=== PATIENT | male | born 1980 | race African-American/Black ===

== ENCOUNTER 2017-02-06 23:36 | Emergency (ER) | payer OTHER ==
[~2017-02-06] VITALS: Ht 172.7 cm; Wt 109.5 kg
[2017-02-06 23:41] VITALS: Ht 172.7 cm; Wt 109.5 kg
[2017-02-07] MEDS ORDERED: IBUPROFEN 600 MG TAB PO ONE (03:00)
[2017-02-07 03:18] LABS: ADD UMIC NO; UR ASCORBIC ACID NEGATIVE (NEGATIVE); UR BILIRUBIN (Dip) NEGATIVE (NEGATIVE); UR BLOOD (Dip) NEGATIVE (NEGATIVE); UR CLARITY CLEAR (CLEAR); UR COLOR YELLOW (YELLOW); UR GLUCOSE (Dip) NEGATIVE (NEGATIVE); UR KETONES (Dip) NEGATIVE (NEGATIVE); UR LEUKOCYTE ESTERASE (Dip) NEGATIVE Leu/ul (NEGATIVE); UR NITRITE (Dip) NEGATIVE (NEGATIVE); UR TOTAL PROTEIN (Dip) NEGATIVE (NEGATIVE); UR UROBILINOGEN (Dip) 1+ mg/dL (NEGATIVE)
--- NOTE | 2017-02-07 03:20 | RADRPT ---
PROCEDURE: Lumbar spine. CLINICAL INDICATION: Low back pain. TECHNIQUE: Three views including AP, lateral and cone-down lateral view of the lumbar spine were obtained. COMPARISON: None. FINDINGS: There is no acute fracture or subluxation. Lumbar vertebral body heights and alignment are within n ormal limits. Intervertebral disk spaces are within normal limits. The posterior elements are unre markable. IMPRESSION: No evidence of fracture or subluxation. .Doroteo Magaña MD, MD Date Time Electronically viewed and signed by .Doroteo Magaña MD, on 02/07/2017 03:20 .T/
--- NOTE | 2017-02-07 03:24 | ERD ---
ER Documentation Chief Complaint Date/Time DATE: 02/07/17 TIME: 03:21 Chief Complaint sp ground level fall backwards, back pain HPI 36-year-old male presents here in emergency department for complaints of right lower back pain after falling backwards into a wood. Patient describes the pain as sharp pain, 6/10 scale, is accompanied with muscle spasms. Patient denies any hematuria or dysuria. Patient denies any incontinence. He did not take any medications to help with symptoms. ROS All systems reviewed and are negative except as per history of present illness. Medications Home Meds Reported Medications [none] Unknown Strength No Conflict Check 02/07/17 Allergies Allergies: Coded Allergies: No Known Allergy (Unverified , 02/06/17) PMhx/Soc Medical and Surgical Hx: pt denies Medical Hx, pt denies Surgical Hx History of Surgery: No Anesthesia Reaction: No Hx Neurological Disorder: No Hx Respiratory Disorders: No Hx Cardiac Disorders: No Hx Psychiatric Problems: No Hx Miscellaneous Medical Probl: No Hx Alcohol Use: No Hx Substance Use: No Hx Tobacco Use: No Smoking Status: Never smoker FmHx Family History: No coronary disease, No diabetes, No other Physical Exam Vitals Vital Signs Date Time Temp Pulse Resp B/P Pulse Ox O2 Delivery O2 Flow Rate FiO2 02/06/17 23:41 97.8 73 20 135/82 98 Physical Exam GENERAL: The patient is well developed and appropriate for usual state of health, in no apparent distress. CHEST: Clear to auscultation bilaterally. There are no rales, wheezes or rhonchi. HEART: Regular rate and rhythm. No murmurs, clicks, rubs or gallops. No S3 or S4. ABDOMEN: Soft, nontender and nondistended. Good bowel sounds. No rebound or guarding. No gross peritonitis. No gross organomegaly or masses. No Grullon sign or McBurney point tenderness. BACK: No midline or flank tenderness. EXTREMITIES: Equal pulses bilaterally. There is no peripheral clubbing, cyanosis or edema. No focal swelling or erythema. Full range of motion. Grossly neurovascularly intact. NEURO: Alert and oriented. Cranial nerves 2-12 intact. Motor strength in all 4 extremities with 5/5 strength. Sensation grossly intact. Normal speech and gait. SKIN: There is no apparent rash or petechia. The skin is warm and dry. HEMATOLOGIC AND LYMPHATIC: There is no evidence of excessive bruising or lymphedema. No gross cervical, axillary, or inguinal lymphadenopathy. Results 24 hrs Laboratory Tests Test 02/07/17 02:50 Urine Color YELLOW Urine Clarity CLEAR Urine pH 5.0 Urine Specific [place] 1.030 Urine Ketones NEGATIVEmg/dL Urine Nitrite NEGATIVEmg/dL Urine Bilirubin NEGATIVEmg/dL Urine Urobilinogen 1+mg/dL Urine Leukocyte Esterase NEGATIVELeu/ul Urine Hemoglobin NEGATIVEmg/dL Urine Glucose NEGATIVEmg/dL Urine Total Protein NEGATIVEmg/dl Current Medications Medications (Trade) Dose Ordered Sig/Margie Route PRN Reason Start Time Stop Time Status Last Admin Dose Admin Ibuprofen (Motrin) 600 mg ONCE ONCE PO 02/07/17 03:00 02/07/17 03:01 DC 02/07/17 03:00 Patient was given medication for pain here in emergency department, after treatment, patient verbalized feeling much better. Patient's pain is improved. PROCEDURE: Lumbar spine. CLINICAL INDICATION: Low back pain. TECHNIQUE: Three views including AP, lateral and cone-down lateral view of the lumbar spine were obtained. COMPARISON: None. FINDINGS: There is no acute fracture or subluxation. Lumbar vertebral body heights and alignment are within normal limits. Intervertebral disk spaces are within normal limits. The posterior elements are unremarkable. IMPRESSION: No evidence of fracture or subluxation. .Doroteo Magaña MD, Date Time Electronically viewed and signed by .Doroteo Magaña MD, on 02/07/2017 03:20 .T/ CC: NURIA LONG BRANDS EDITOR Procedures/MDM Medical Decision Making: Patient's pain is most likely consistent with a back strain/ contusion. There is no suspicion for neurovascular compromise. Patient has intact sensation and circulation of the affected extremity and distal extremities. No incontinence, no suspicion for cauda equina syndrome, no saddle anesthesia, no symptoms of any acute bacterial infection, no symptoms of any perirectal abscesses, pilonidal cyst.There is low suspicion for septic arthritis. Patient does not have any fever. No symptoms of any aortic dissection or aortic aneurysm. Radiology exam not indicated at this time. Disposition: Home. Patient is given prescription for ibuprofen for mild to moderate pain, Speed for severe pain, Flexeril for muscle spasm. Patient was advised to avoid heavy lifting , apply warm compresses on affected area. Patient was advised that if symptoms are worse, numbness, tingling, high fever, unable to move joint, worsening symptoms, to return to emergency department immediately. Otherwise, patient is advised to follow up with the primary care doctor in 5-7 days for reevaluation of symptoms. Departure Diagnosis: Primary Impression: Back pain Back pain location: low back pain Chronicity: acute Back pain laterality: right Sciatica presence: without sciatica Qualified Code: M54.5 - Acute right-sided low back pain without sciatica Condition: Stable Patient Instructions: Back Pain (Acute Or Chronic) NURIA LONG NP Feb 07, 2017 03:24
[2017-02-07] MEDS ORDERED: HYDR-906 PO (04:07)
[2017-02-07] MEDS ORDERED: IBUP-1542 PO (04:07)
[2017-02-07] MEDS ORDERED: CYCL-319 PO (04:07)
[2017-02-07 04:25] VITALS: BP 137/74; PULSE 74; RESP 18
== END 2017-02-07 04:25 | disposition home or self-care (01) ==
LOC: FTE 23:36
DX: M54.5 Low back pain (principal)
CPT/HCPCS: 72100; 81003

== ENCOUNTER 2018-10-04 12:17 | Emergency (ER) | payer OTHER ==
[~2018-10-04] VITALS: Ht 185.4 cm; Wt 112.2 kg
[~2018-10-04 12:17] MED LIST: CYCL10TA7 PO; HYDR-4011 PO; IBUP-1542 PO
[2018-10-04 12:27] VITALS: BP 132/82; PULSE 65; RESP 20; Ht 185.4 cm; Wt 112.2 kg
[2018-10-04] MEDS ORDERED: IBUP-1542 PO (13:17)
--- NOTE | 2018-10-04 15:13 | ERD ---
ER Documentation Chief Complaint Chief Complaint Complains of chest pain since today HPI Patient is a 38-year-old male with no medical problems who presents with chest pain. The patient said that he has had chest pain off and on for 1 week. It comes and goes. Is a sharp pain and lasts seconds at a time and then goes away. He tried [facility]. He does have a primary doctor. Upon review of old medical records this is the patient's second visit to the ER for various complaints. ROS All systems reviewed and are negative except as per history of present illness. Medications Home Meds Active Scripts Ibuprofen* (Motrin*) 600 Mg Tab, 600 MG PO Q6H PRN for PAIN AND OR ELEVATED TEMP, #30 TAB Prov:SAMPSON LEROY MD 10/04/18 Cyclobenzaprine Hcl* (Cyclobenzaprine Hcl*) 10 Mg Tablet, 10 MG PO TID, #15 TAB Prov:NURIA LONG NP 02/07/17 Hydrocodone/Acetaminophen ([place] 5-325 Tablet) 1 Each Tablet, 1 TAB PO Q6H PRN for SEVERE PAIN LEVEL 7-10, #20 TAB Prov:NURIA LONG NP 02/07/17 Ibuprofen* (Motrin*) 600 Mg Tab, 600 MG PO Q6H PRN for PAIN AND OR ELEVATED TEMP, #30 TAB Prov:NURIA LONG DIRECTOR OF RECRUITMENT AND ADMISSIONS 02/07/17 Reported Medications [none] Unknown Strength No Conflict Check 02/07/17 Allergies Allergies: Coded Allergies: No Known Allergy (Unverified , 02/06/17) PMhx/Soc Medical and Surgical Hx: pt denies Medical Hx, pt denies Surgical Hx History of Surgery: No Anesthesia Reaction: No Hx Neurological Disorder: No Hx Respiratory Disorders: No Hx Cardiac Disorders: No Hx Psychiatric Problems: No Hx Miscellaneous Medical Probl: No Hx Alcohol Use: No Hx Substance Use: No Hx Tobacco Use: No Smoking Status: Never smoker FmHx Family History: No coronary disease Physical Exam Vitals Vital Signs Date Temp Pulse Resp B/P (MAP) Pulse Ox O2 O2 Flow FiO2 Time Delivery Rate 10/04/18 98.0 65 20 132/82 98 12:27 (99) Physical Exam Const: No acute distress Head: Atraumatic Eyes: Normal Conjunctiva ENT: Normal External Ears, Nose and Mouth. Neck: Full range of motion. No meningismus. Resp: Clear to auscultation bilaterally Cardio: Regular rate and rhythm, no murmurs Abd: Soft, non tender, non distended. Normal bowel sounds Skin: No petechiae or rashes Back: No midline or flank tenderness Ext: No cyanosis, or edema Neur: Awake and alert Psych: Normal Mood and Affect Procedures/MDM EKG read by me: Rate/Rhythm: Regular rate and rhythm at a normal rate Intervals: Normal Impression: No evidence of ischemia or arrhythmia Chest X-ray 1V Interpreted by me: Soft Tissue: No acute abnormalities Bones: No acute abnormalities Mediastinum/Cardiac Silhouette/Lungs: No acute abnormalities Patient is a 38-year-old male with no cardiac risk factors who presents with chest pain. EKG and chest x-ray were negative. His symptoms are not consistent with acute coronary syndrome. I doubt acute corner syndrome, pneumonia, pneumothorax, pulmonary embolism, or aortic dissection. The patient will be given a prescription for ibuprofen but will need to follow-up closely with his primary doctor within 24 to 48 hours. The patient can return for any worsening symptoms. Departure Diagnosis: Primary Impression: Chest pain Chest pain type: unspecified Qualified Codes: R07.9 - Chest pain, unspecified Condition: Fair Patient Instructions: Chest Pain, Uncertain Cause Referrals: Your primary doctor Additional Instructions: Call your primary care doctor TOMORROW for an appointment during the next 1-2 days.See the doctor sooner or return here if your condition worsens before your appointment time. SAMPSON LEROY MD October 04, 2018 15:13
== END 2018-10-04 14:06 | disposition home or self-care (01) ==
LOC: E/R 12:17
DX: R07.9 Chest pain, unspecified (principal)
CPT/HCPCS: 71045; 93005